=== PATIENT | female | born 1970 | race Caucasian/White ===

== ENCOUNTER 2017-05-18 06:32 | Inpatient (IN) | payer BC ==
[~2017-05-18 06:32] MED LIST: Acetaminophen 500 MG Tab PO ONE; Celecoxib 200 MG Cap PO ONE; Gabapentin 300 MG Cap PO ONE; Scopolamine 1.5 MG Transdermal Patch TOP SCH
[2017-05-18] MEDS ORDERED: cefOXitin 2 GM Vial ONE (06:51)
[2017-05-18] MEDS ORDERED: Dextrose 5%-Lactated Ringers 1,000 ML IV SCH (07:30)
[2017-05-18] MEDS ORDERED: Ondansetron 4 MG/2 ML SDV ONE (07:51)
[2017-05-18] MEDS ORDERED: Glycopyrrolate 0.2 MG/ML 5 ML MDV ONE (07:51)
[2017-05-18] MEDS ORDERED: Dexamethasone 4 MG/ML SDV ONE (07:51)
[2017-05-18] MEDS ORDERED: Propofol 200 MG/20 ML SDV ONE (07:51)
[2017-05-18] MEDS ORDERED: Neostigmine Methylsulfate 1 MG/ML 5 ML Syringe ONE (07:51)
[2017-05-18] MEDS ORDERED: Succinylcholine 200 MG/10 ML MDV ONE (07:51)
[2017-05-18] MEDS ORDERED: Rocuronium 50 MG/5 ML Vial ONE (07:51)
[2017-05-18] MEDS ORDERED: Midazolam 1 MG/ML 2 ML SDV ONE (07:51)
[2017-05-18] MEDS ORDERED: fentaNYL 250 MCG/5 ML SDV ONE (07:51)
[2017-05-18] MEDS ORDERED: Ropivacaine 56 ML, Dexamethasone 8 MG, EPINEPHrine 0.4 MG, Sodium Chloride 0.9% 21.6 ML NERVRT ONE ×4 (08:30)
[2017-05-18] MEDS ORDERED: Lidocaine 2% 100 MG/5 ML Syringe IVPUSH ONE (08:30)
[2017-05-18] MEDS ORDERED: cefOXitin 2 GM in Sodium Chloride 0.9% 50 ML IV ONE (08:30)
[2017-05-18] MEDS ORDERED: Ketamine 500 MG/5 ML MDV IV ONE (08:30)
[2017-05-18] MEDS ORDERED: Lidocaine 1% 2 ML ONE (08:43)
[2017-05-18] MEDS ORDERED: Ondansetron 4 MG/2 ML SDV IVPUSH ONE (10:50)
[2017-05-18] MEDS: Lidocaine 0.4%/D5W 2 GM/500 ML BAG IV SCH (11:21)
[2017-05-18] MEDS ORDERED: hydrOXYzine HCl 100 MG/2 ML SDV IM PRN (12:00)
[2017-05-18] MEDS ORDERED: Ondansetron 4 MG/2 ML SDV IVPUSH PRN (12:00)
[2017-05-18] MEDS ORDERED: Labetalol 20 MG/4 ML Syringe IVPUSH PRN (12:00)
[2017-05-18] MEDS ORDERED: Metoclopramide 10 MG/2 ML SDV IVPUSH PRN (12:00)
[2017-05-18] MEDS ORDERED: Pantoprazole 40 MG Vial IVPUSH SCH (12:00)
[2017-05-18] MEDS ORDERED: SCOPOLAMINE PATCH CHECK TOP SCH (12:00)
[2017-05-18] MEDS ORDERED: diphenhydrAMINE 50 MG/ML SDV IVPUSH PRN (12:00)
[2017-05-18] MEDS: Gabapentin 250 MG/5 ML Solution ML 470 ML Bottle PO SCH ×2 (14:15→21:02)
[2017-05-18] MEDS: cefOXitin 2 GM in Sodium Chloride 0.9% 50 ML IV SCH ×2 (14:15→19:30)
[2017-05-18] MEDS: Dextrose 5%-Lactated Ringers 1,000 ML IV SCH (14:15)
[2017-05-18] MEDS ORDERED: MVI, Adult with Vitamin K 10 ML, Thiamine 200 MG, Chromium/Copper/Mang/Selen/Zn 1 ML in... IV SCH ×4 (16:00)
[2017-05-18] MEDS: Acetaminophen Soln 650 MG/20.3 ML UD Cup PO SCH ×2 (16:08→21:02)
[2017-05-18] MEDS: Heparin Sodium 5,000 Units/ML Vial SUBCUT SCH (18:21)
[2017-05-18] MEDS: Tolterodine 2 MG Tab PO SCH (21:02)
[2017-05-18] MEDS: Venlafaxine 75 MG Tab PO SCH (21:03)
[2017-05-19] MEDS: Lidocaine 0.4%/D5W 2 GM/500 ML BAG IV SCH (00:48)
[2017-05-19] MEDS: Dextrose 5%-Lactated Ringers 1,000 ML IV SCH (02:58)
[2017-05-19] MEDS: cefOXitin 2 GM in Sodium Chloride 0.9% 50 ML IV SCH (02:58)
[2017-05-19] MEDS: Acetaminophen Soln 650 MG/20.3 ML UD Cup PO SCH ×4 (03:00→21:08)
[2017-05-19] MEDS ORDERED: Iohexol 647 MG/ML 50 ML SDV PO SCH (03:45)
[2017-05-19] MEDS: Heparin Sodium 5,000 Units/ML Vial SUBCUT SCH ×2 (05:23→17:16)
[2017-05-19] MEDS ORDERED: ALPRAZolam 0.5 MG Tab PO PRN (08:08)
[2017-05-19] MEDS: Celecoxib 200 MG Cap PO SCH (08:09)
[2017-05-19] MEDS ORDERED: Cyclobenzaprine 10 MG Tab PO PRN (08:09)
[2017-05-19] MEDS ORDERED: Ondansetron 4 MG Tab.DIS PO PRN (08:54)
[2017-05-19] MEDS: Gabapentin 250 MG/5 ML Solution ML 470 ML Bottle PO SCH ×3 (09:54→21:04)
[2017-05-19] MEDS: Aspirin 81 MG Tab.EC PO SCH (09:54)
[2017-05-19] MEDS: FLU Vacc QS 2017-18 (36mos UP)/PF 60 MCG/0.5 ML Syringe IM ONE ×2 (09:55→09:58)
[2017-05-19] MEDS: Tolterodine 2 MG Tab PO SCH ×2 (10:03→21:04)
[2017-05-19] MEDS ORDERED: Metoprolol Succinate 25 MG Tab.ER PO SCH (21:00)
[2017-05-19] MEDS: Venlafaxine 75 MG Tab PO SCH (21:04)
[2017-05-20] MEDS: Heparin Sodium 5,000 Units/ML Vial SUBCUT SCH (05:14)
[2017-05-20] MEDS: Acetaminophen Soln 650 MG/20.3 ML UD Cup PO SCH ×2 (05:14→09:29)
[2017-05-20] MEDS: Celecoxib 200 MG Cap PO SCH (07:38)
[2017-05-20] MEDS ORDERED: Cyanocobalamin (Vitamin B12) 1,000 MCG/ML SDV IM ONE (09:00)
[2017-05-20] MEDS: Gabapentin 250 MG/5 ML Solution ML 470 ML Bottle PO SCH (09:29)
[2017-05-20] MEDS: Aspirin 81 MG Tab.EC PO SCH (09:30)
--- NOTE | 2017-05-20 14:11 | PN ---
DATE OF SERVICE: 05/19/2017 The patient has been afebrile with stable vital signs. Oral intake has been good. We will go up to a step-2 diet today and she is tolerating the present pain management satisfactorily, so likely will be ready for discharge home tomorrow. Masoud Rodriguez MD /[id number]
--- NOTE | 2017-05-21 09:22 | CR ---
Limited upper GI The patient is status post gastric sleeve. There are left upper quadrant drains in place. There is no extravasation of contrast. The gastric pouch empties readily into a nondistended duodenum. Impression: 1. Status post gastric sleeve procedure without evidence for complication.
--- NOTE | 2017-05-21 14:15 | DISCH ---
FINAL DIAGNOSES: 1. Morbid obesity. 2. Marked hepatomegaly. 3. Paraesophageal diaphragmatic hernia associated with mediastinal lipoma. 4. Hypertension. 5. Depression and anxiety. 6. History of hyperlipidemia. 7. Chronic joint pain. OPERATIVE PROCEDURES: Done on 05/18/2017; 1. Laparoscopic sleeve gastrectomy. 2. Antony-Cut needle liver biopsy. 3. Repair of paraesophageal diaphragmatic hernia with mesh. 4. Excision of mediastinal lipoma. HOSPITAL COURSE: This is a 47-year-old female presenting with longstanding morbid obesity. After preoperative evaluation and discussion, she wished to proceed with a laparoscopic sleeve gastrectomy. This was accomplished on the date of admission without difficulty. The patient had a smooth postoperative course and did not require any postoperative narcotics, tolerated the combination of the Celebrex, gabapentin, and Tylenol for pain. She will be discharged home to continue the liquid diet until June 17 and follow up with Samantha Dunbar will be on 05/28/2017 at 9:30 a.m. She will continue her home medications, holding the vitamins and other supplements until after the first appointment. She will be resuming her usual medications other than she will probably hold the for a while, as that is a fairly large pill.
--- NOTE | 2017-05-21 14:45 | OR ---
DATE OF PROCEDURE: 05/18/2017 PREOPERATIVE DIAGNOSIS: Morbid obesity. POSTOPERATIVE DIAGNOSES: 1. Morbid obesity. 2. Marked hepatomegaly. 3. Paraesophageal diaphragmatic hernia with associated mediastinal lipoma. OPERATIVE PROCEDURES: 1. Laparoscopic sleeve gastrectomy (22556). 2. Antony-Cut needle liver biopsy (67315). 3. Repair of paraesophageal diaphragmatic hernia with mesh (31270). 4. Excision of mediastinal lipoma (60400). ANESTHESIA: General. SENIOR VICE PRESIDENT AND CHIEF INFORMATION OFFICER: Samantha Dunbar PA-C. INDICATIONS FOR PROCEDURE: This is a 47-year-old female with longstanding morbid obesity and increasingly significant comorbidities. After preoperative evaluation and discussion, she wished to proceed with a sleeve gastrectomy. Potential risks of the procedure including bleeding, infection, leaks from the staple line as well as possibility of cardiopulmonary, septic, or hemorrhagic complications leading to were discussed, and the patient wishes to proceed. DETAILS OF PROCEDURE: The patient was taken to the operating room and after general endotracheal anesthesia was induced, she was placed in a lithotomy position. Bilateral subcostal transversus abdominis plane blocks were then placed using the standard solution and a continuous ultrasound guidance. The abdomen was then prepped and draped. At 15 cm inferior, 5 cm left of xiphoid process, transverse incision was made and peritoneal cavity entered under direct vision with an Optiview trocar and inflated to 15 mmHg pressure with CO2. Laparoscope was then reinserted. No underlying trocar insertion site injuries were seen. Following this, 5 additional trocars were placed across the upper mid abdomen and general exploration was undertaken. The patient was noted to have marked hepatomegaly with the liver being roughly 2 to 3 times normal, liver grossly fatty infiltrated. A Antony- Cut needle biopsy was obtained from left lobe of the liver. Minimal bleeding from biopsy site was controlled with electrocautery. At this point, the liver was retracted anteriorly. The patient was noted to have a significant paraesophageal diaphragmatic hernia. Given this, the peritoneum anterior to the esophagogastric junction and along the crura on each side was incised after the hernia had been reduced. This allowed then a dissection behind the esophagus. The attachments to the distal esophagus and to the mediastinal structures were then teased away with blunt and Harmonic scalpel dissection. The mediastinal lipoma was located posterior to the esophagus and was excised at this point. The patient was felt to be best served with a posterior crural repair augmented with some mesh. The posterior crural repair was then accomplished with a series of 0 Ethibond sutures reinforced with PTFE pledgets. A segment of Phasix mesh was then cut such that it would lie across the crural repair and slightly along the sides of the esophagus. This was fixed in position with titanium tacking screws. At this point, the omentum was then divided away from the stomach beginning in the mid greater curvature and extending up to and through the highest and posterior short gastric vessels. The omentum was then divided distally to a point 2 cm proximal to the pylorus. Some rear attachments behind the stomach were then taken down with Harmonic scalpel as well. At that point, the stomach appeared to be ready for the resected portion of the procedure. Beginning 2 cm proximal to the pylorus, the anterior wall of the antrum was then marked and this continued leftward underneath the incisura angularis with care taken to avoid overtightening of the area. The first 2 loads of the SHANTHI stapler were done with standard black loads. Following this, a 32-Malay tube was placed per Anesthesia and was taken into the antrum and then positioned along the lesser curvature. This dissection was then placed on this tube which then nicely fixed the stomach against the tube. The remainder of the sleeve gastrectomy resection was then accomplished with a combination of reinforced black and purple loads. Care was taken to go slightly leftward at the esophagogastric junction to avoid stapling the esophagus itself. Once this was completed, the staple line appeared to be intact. No additional areas of reinforcement appeared to be necessary. The sleeve gastrectomy staple line was then reinforced with fibrin sealant. This was focused proximally and at that level, the omentum was placed up against the proximal end of the sleeve gastrectomy staple line. The tube which had been replaced was then inflated with air while again the staple line was submerged within antibiotic-containing saline solution. No leaks or bleeding or other problems were noted and that tube was then removed. At this point, the stomach specimen was removed from the left lateral trocar site and a single Yosef-Castañeda drain was taken down through that site as well and placed up adjacent to the proximal end of the sleeve gastrectomy staple line and from there into the splenic fossa. No further problems were noted. Trocars removed. The peritoneal cavity deflated. Incisions were closed with some 4-0 Vicryl skin stitch. Dressing was applied. The patient was taken to the recovery room in satisfactory condition. Physician multimedia production assistant, Samantha Dunbar, played an essential role in assisting in this case, helping to position the patient, retract structures as needed, as well as suturing and cutting sutures when indicated. Her presence improved patient safety and decreased operative time. Masoud Rodriguez MD /[id number]
== END 2017-05-20 10:00 | disposition home or self-care (01) | DRG 403 ==
LOC: JP.SDSSCHI 06:32 → JP.SDS 06:32 → EDSTATUS 09:00 → JP.2SS 11:12
PROVIDERS: ADMIT Surgery; ATTEND Surgery
PROC: 0DB64Z3 Excision of Stomach, Percutaneous Endoscopic Approach, Vertical (ICD-10-PCS; principal; 2017-05-18)
PROC: 0WBC4ZX Excision of Mediastinum, Percutaneous Endoscopic Approach, Diagnostic (ICD-10-PCS; 2017-05-18)
PROC: 0BUT4JZ Supplement Diaphragm with Synthetic Substitute, Percutaneous Endoscopic Approach (ICD-10-PCS; 2017-05-18)
PROC: 0FB24ZX Excision of Left Lobe Liver, Percutaneous Endoscopic Approach, Diagnostic (ICD-10-PCS; 2017-05-18)
PROC: 3E0T3BZ Introduction of Anesthetic Agent into Peripheral Nerves and Plexi, Percutaneous Approach (ICD-10-PCS; 2017-05-18)
DX: E66.01 Morbid (severe) obesity due to excess calories (principal); Z68.41 Body mass index [BMI] 40.0-44.9, adult; I10 Essential (primary) hypertension; E78.5 Hyperlipidemia, unspecified; F32.9 Major depressive disorder, single episode, unspecified; F41.9 Anxiety disorder, unspecified; R16.0 Hepatomegaly, not elsewhere classified; K44.9 Diaphragmatic hernia without obstruction or gangrene; D17.4 Benign lipomatous neoplasm of intrathoracic organs; M25.50 Pain in unspecified joint; G89.29 Other chronic pain; Z79.82 Long term (current) use of aspirin
CPT/HCPCS: 36415; 74240; 74240-26; 80053; 83735; 84100; 85027; 86850; 86900; 86901; 88304; 88307; 88313; 90686; 94762; A9270-GY; C1781; C9113; J0171; J0330; J0694; J1100; J1644; J2001; J2250; J2405; J2704; J2710; J2795; J3010; J3411; J3420; J7030; J7040; J7042; J7050; Q9967